=== PATIENT | female | born 1970 | race American Indian/Alaskan Native ===

== ENCOUNTER 2018-01-22 08:11 | Emergency (ER) | payer OTHER ==
[2018-01-22 08:11] VITALS: BMI 19.7
--- NOTE | 2018-01-22 08:59 | C.PDOC ---
History Of Present Illness 47yo female, presents to ER for evaluation of worsening left sided pain for the past "months." She denies any trauma or injury to the area and reports the pain is worse when she stretches the area or lays directly on her hip. She states the pain is not associated with weight bearing and she is able to ambulate without difficulty. She has been taking Motrin 800mg and Tylenol with no relief of pain. She denies any fever, chills, weakness or numbness of her lower extremities. No other medical complaints. PMD: [facility] Time Seen by Provider: 01/22/18 08:32 Chief Complaint (Nursing): Hip Pain History Per: Patient History/Exam Limitations: no limitations Onset/Duration Of Symptoms: Persistent ("months") Current Symptoms Are (Timing): Still Present Additional History Per: Patient Past Medical History Reviewed: Historical Data, Nursing Documentation, Vital Signs Vital Signs: Last Vital Signs Temp 98.5 F 01/22/18 08:22 Pulse 124 H 01/22/18 08:22 Resp 18 01/22/18 08:22 BP 111/72 01/22/18 08:22 Pulse Ox 99 01/22/18 09:25 - Medical History PMH: Asthma, HTN Denies: Depression, Chronic Kidney Disease Other Surgeries: left nephrectomy - organ donation - [facility] Procedures INJECT/INFUSE ELECTROLYT (04/14/15) INJECT/INFUSE NEC (04/14/15) VITAL CAPACITY DETERMIN (04/14/15) Family History: States: No Known Family Hx, Unknown Family Hx - Social History Hx Tobacco Use: Yes (0.25 PPD) Hx Alcohol Use: No Hx Substance Use: Yes (heroin) - Immunization History Hx Tetanus Toxoid Vaccination: No Hx Influenza Vaccination: No Hx Pneumococcal Vaccination: No Review Of Systems Except As Marked, All Systems Reviewed And Found Negative. Constitutional: Negative for: Fever, Chills Musculoskeletal: Positive for: Other (left hip pain) Neurological: Negative for: Weakness, Numbness Physical Exam - Physical Exam Appears: Non-toxic, No Acute Distress Skin: Normal Color, Warm, Dry, No Rash Head: Normacephalic Eye(s): bilateral: Normal Inspection Neck: Normal ROM, Supple Chest: Symmetrical Cardiovascular: Rhythm Regular Respiratory: Normal Breath Sounds Extremity: Normal ROM (FROM at left hip. No pain with extension, flexion or external rotation at left hip.), Tenderness (Tenderness along left iliac crest, no gross swelling appreciated. Reproducible pain with hip flexor stretching. + Mild tenderness to lateral left upper hip) Neurological/Psych: Oriented x3, Normal Motor, Normal Sensation Gait: Steady ED Course And Treatment O2 Sat by Pulse Oximetry: 99 (RA) Pulse Ox Interpretation: Normal - Other Rad XR Hip and left pelvis X-Ray: Interpreted by Me (negative) Reevaluation Time: :44 Reassessment Condition: Improved Medical Decision Making Medical Decision Making: Impression: Left hip pain Plan: -- Flexeril 10mg Po -- Toradol 60mg IM -- Lidoderm patch -- Bilateral hip XR w/ left lateral pelvis Disposition Counseled Patient/Family Regarding: Studies Performed, Diagnosis, Need For Followup, Rx Given - Disposition Referrals: [facility] [Outside] [facility] [Outside] Dinorah Pacheco MD [Staff Provider] - Disposition: HOME/ ROUTINE Disposition Time: :44 Condition: IMPROVED Prescriptions: Cyclobenzaprine [Flexeril] 10 mg PO TID #15 tab Lidocaine 5% [Lidoderm] 1 ea TD PRN PRN #10 patch PRN Reason: Pain, Moderate (4-7) Naproxen 500 mg PO BID #30 tab Instructions: Hip Bursitis (DC) Forms: [facility] (Persian), Work Excuse - Clinical Impression Clinical Impression: Hip pain - Scribe Statement The provider has reviewed the documentation as recorded by the Scribe (Savannah Frost) Provider Attestation: All medical record entries made by the Scribe were at my direction and personally dictated by me. I have reviewed the chart and agree that the record accurately reflects my personal performance of the history, physical exam, medical decision making, and the department course for this patient. I have also personally directed, reviewed, and agree with the discharge instructions and disposition.
[2018-01-22] MEDS ORDERED: Lidocaine 5% Patch TD STA (09:01)
[2018-01-22] MEDS ORDERED: Lidocaine 5% Patch TD ONE (09:18)
[2018-01-22 10:19] VITALS: BP 115/76; PULSE 97; RESP 20; TEMP 98.2; O2SAT 96
--- NOTE | 2018-01-22 11:11 | RAD ---
PROCEDURE: Left Hip X-ray Radiographs. HISTORY: PAIN COMPARISON: None. FINDINGS: BONES: Normal. No fracture. JOINTS: Normal. SOFT TISSUES: Normal. OTHER FINDINGS: None. IMPRESSION: Normal left hip radiographs.
== END 2018-01-22 10:18 | disposition home or self-care (01) ==
LOC: C.ER 08:11
DX: M25.552 Pain in left hip (principal); I10 Essential (primary) hypertension; F17.210 Nicotine dependence, cigarettes, uncomplicated
CPT/HCPCS: 73502; 96372; 99284; J1885; J8540

== ENCOUNTER 2018-09-19 08:00 | Emergency (ER) | payer OTHER ==
[2018-09-19 08:00] VITALS: BMI 19.7
[2018-09-19] MEDS ORDERED: Albuterol-Ipratrop 3 mg / 0.5 (3 ml) UD ONE (08:16)
[2018-09-19 08:20] VITALS: O2SAT 95
[2018-09-19] MEDS ORDERED: Albuterol 0.083% Inhal Sol (2.5 mg/3 mL) UD ONE (08:42)
[2018-09-19] MEDS ORDERED: Sodium Chloride 0.9% 1,000 ML ONE (08:42)
[2018-09-19 08:57] LABS: BASO # 0.1 K/uL (0.0-0.2); BASO % 0.6 % (0.0-2.0); LYMPH # 1.6 K/uL (1.0-4.3); LYMPH % 13.5 % (20.0-40.0); MEAN CORPUSCULAR HEMOGLOBIN 25.6 pg (27.0-31.0); MEAN CORPUSCULAR HGB CONC 32.6 g/dL (33.0-37.0); MEAN PLATELET VOLUME 7.8 fL (7.2-11.7); MONO # 0.6 K/uL (0.0-0.8); MONO % 4.6 % (0.0-10.0); NEUT # 9.8 K/uL (1.8-7.0); NEUT % 81.3 % (50.0-75.0); RBC 4.3 Mil/uL (3.80-5.20); RED CELL DISTRIBUTION WIDTH 16.5 % (11.5-14.5)
[2018-09-19] MEDS: Sodium Chloride 0.9% 1,000 ML IV ONE (08:57)
[2018-09-19 09:00] LABS: MEAN CELL VOLUME 78.5 fL (81.0-99.0); WHITE BLOOD COUNT 12.1 K/uL (4.8-10.8)
[2018-09-19] MEDS: Albuterol 0.083% Inhal Sol (2.5 mg/3 mL) UD IH STA (09:02)
--- NOTE | 2018-09-19 09:08 | C.PDOC ---
History Of Present Illness 48yo female, comes to ER reporting a non-productive cough with associated rhinorrhea, fever, chills, and bodyaches x 4 weeks. Patient states for the past few days, she has had muscle cramps and spams in her calves, feet and toes. She states her daughter has similar viral symptoms and the patient has had multiple sick contacts at home. She otherwise denies any chest pain, shortness of breath, abdominal pain, nausea, vomiting or diarrhea. PMD: [facility] Time Seen by Provider: 09/19/18 08:02 Chief Complaint (Nursing): Flu-like Symptoms History Per: Patient History/Exam Limitations: no limitations Onset/Duration Of Symptoms: Days, Persistent Current Symptoms Are (Timing): Still Present Location Of Pain: Diffuse Myalgias Sick Contacts (Context): Family Member(s) Associated Symptoms: Fever, Chills, Cough, Myalgias. denies: Nausea, Vomiting, Diarrhea Additional History Per: Patient Past Medical History Reviewed: Historical Data, Nursing Documentation, Vital Signs Vital Signs: Last Vital Signs Temp 98.4 F 09/19/18 08:16 Pulse 108 H 09/19/18 08:16 Resp 18 09/19/18 08:16 BP 136/81 09/19/18 08:16 Pulse Ox 95 09/19/18 08:16 - Medical History PMH: Asthma, HTN Denies: Depression, Chronic Kidney Disease Other Surgeries: surgery due to kidney donation - [facility] Procedures INJECT/INFUSE ELECTROLYT (04/14/15) INJECT/INFUSE NEC (04/14/15) VITAL CAPACITY DETERMIN (04/14/15) Family History: States: Unknown Family Hx - Social History Hx Tobacco Use: Yes (0.25 PPD) Hx Alcohol Use: No Hx Substance Use: No (DENIES) - Immunization History Hx Tetanus Toxoid Vaccination: No Hx Influenza Vaccination: No Hx Pneumococcal Vaccination: No Review Of Systems Constitutional: Positive for: Fever, Chills, Weakness, Other (bodyaches) Cardiovascular: Negative for: Chest Pain Respiratory: Positive for: Cough. Negative for: Shortness of Breath Gastrointestinal: Negative for: Nausea, Vomiting, Abdominal Pain, Diarrhea Musculoskeletal: Positive for: Other (cramping in calves, feet and toes) Neurological: Negative for: Weakness, Numbness Physical Exam - Physical Exam Appears: Non-toxic, No Acute Distress Skin: Warm, Dry Head: Atraumatic, Normacephalic Eye(s): bilateral: Normal Inspection, PERRL, EOMI Nose: Normal Throat: Normal, No Erythema, No Exudate Neck: Normal ROM, Supple Chest: Symmetrical Cardiovascular: Other (tachycardia, regular rate) Respiratory: No Rales, No Rhonchi, Wheezing (mild expiratory), Other (actively coughing, but speaking in full sentences) Gastrointestinal/Abdominal: Normal Exam, Soft, No Tenderness Back: Normal Inspection Extremity: Normal ROM, No Deformity Neurological/Psych: Oriented x3, Normal Speech, Normal Cognition, Normal Motor, Normal Sensation ED Course And Treatment - Laboratory Results Result Diagrams: 09/19/18 08:48 09/19/18 08:48 O2 Sat by Pulse Oximetry: 95 (RA) Pulse Ox Interpretation: Normal Progress Note: Labs, IV fluids ordered. Patient given Albuterol 2.5mg INH Disposition Counseled Patient/Family Regarding: Studies Performed, Diagnosis, Need For Followup, Rx Given - Disposition Referrals: Florencia Palacios MD [Medical Doctor] - Disposition: HOME/ ROUTINE Disposition Time: 09:35 Condition: STABLE Additional Instructions: FOLLOW UP WITH YOUR DOCTOR IN 1-2 DAYS DRINK PLENTY OF FLUIDS USE MEDICATIONS DIRECTED RETURN TO ER IF SYMPTOMS WORSEN Prescriptions: Acetaminophen [Tylenol 325mg tab] 650 mg PO Q6 PRN #30 tab PRN Reason: pain/fever Benzonatate [Tessalon Perles] 100 mg PO BID PRN #15 sgl PRN Reason: Cough Cyclobenzaprine [Flexeril] 10 mg PO BID PRN #15 tab PRN Reason: Muscle Spasm Instructions: Viral Syndrome (DC) Forms: [employer] (Azerbaijani) Print Language: YI - Clinical Impression Clinical Impression: Viral syndrome - Scribe Statement The provider has reviewed the documentation as recorded by the Andrew Frost Provider Attestation: All medical record entries made by the Andrew were at my direction and personally dictated by me. I have reviewed the chart and agree that the record accurately reflects my personal performance of the history, physical exam, medical decision making, and the department course for this patient. I have also personally directed, reviewed, and agree with the discharge instructions and disposition.
[2018-09-19 09:17] LABS: ALB/GLOB RATIO 1.3 (1.0-2.1); ALBUMIN 4.4 g/dL (3.5-5.0); ALT/SGPT 20 U/L (9-52); AST/SGOT 21 U/L (14-36); BLOOD UREA NITROGEN 15 mg/dL (7-17); CALCIUM 9.2 mg/dl (8.6-10.4); GFR NON-AFRICAN AMERICAN > 60
[2018-09-19 10:00] VITALS: BP 138/82; PULSE 93; RESP 17; TEMP 98.7
--- NOTE | 2018-09-19 11:24 | RAD ---
HISTORY: cough COMPARISON: Chest xray performed 09/06/16 TECHNIQUE: Chest, one view. FINDINGS: LUNGS: Mild left lobe infiltrate or atelectasis. Please note that chest x-ray has limited sensitivity for the detection of pulmonary masses. PLEURA: No significant pleural effusion identified. No definite pneumothorax . CARDIOVASCULAR: Heart size appears within normal limits. Atherosclerotic calcification present. OSSEOUS STRUCTURES: No acute osseous abnormality identified. VISUALIZED UPPER ABDOMEN: Unremarkable. OTHER FINDINGS: None. IMPRESSION: Mild left lobe infiltrate or atelectasis.
== END 2018-09-19 09:59 | disposition home or self-care (01) ==
LOC: C.ER 08:00
DX: I10 Essential (primary) hypertension (principal)
CPT/HCPCS: 71045; 80053; 81025; 85025; 94150; 94640; 96360; 99284; J7030